=== PATIENT | female | born 1985 | race Two or more races ===

== ENCOUNTER 2016-11-03 11:06 | Emergency (ER) | payer OTHER, MEDICAID ==
[~2016-11-03 11:06] MED LIST: COLY4000S PO; MAGN1SOL2 PO
[2016-11-03 11:20] VITALS: BP 117/85; PULSE 78; RESP 20; TEMP 98
--- NOTE | 2016-11-03 11:53 | PD ---
HPI Chief Complaint: Complaint Time Seen by Provider: 11:49 Travel History International Travel<30 days: No Contact w/Intl Traveler<30days: No Traveled to known affect area: No History of Present Illness HPI 31-year-old female is complaining of frequency and burning with urination. She' s been sick for about 4 days with sore throat and cough. She's been congested. 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 She does get frequent urinary tract infections. She smokes cigarettes PFSH Past Medical History Diminished Hearing: No Gastrointestinal Disorders: Yes (BORN WITHOUT ANUS) Genitourinary: Yes (FREQ UTI, "SWOLLEN KIDNEYS" ) Immunizations Current: Yes ?: Not LMP: NOW : 1 Para: 1 Miscarriage: 0 : 0 Past Surgical History Abdominal Surgery: Yes (COLOSTOMY BAG AT AGE 1, states she was born without an anus) Section: Yes Other Surgery: Yes (anal surgery at ) Social History Alcohol Use: Yes (SOCIAL- mix drinks, wine, beer) Tobacco Use: Yes (/2 PPD) Substance Use: No Allergies-Medications (Allergen,Severity, Reaction): Coded Allergies: Amoxil (Verified Allergy, Mild, 11/03/16) pt states she ahs taken amoxicillin recently for uti and had no adverse or allergic reaction. states her mother told her rash as a child. Reported Meds & Prescriptions Reported Meds & Active Scripts Active No Active Prescriptions or Reported Medications Review of Systems General / Constitutional: No: Fever, Chills Eyes: No: Diploplia, Blurred Vision HENT: No: Headaches Cardiovascular: No: Chest Pain or Discomfort Respiratory: Positive: Cough, Wheezing Gastrointestinal: No: Vomiting, Diarrhea Genitourinary: Positive: Urgency, Frequency, Dysuria Musculoskeletal: No: Myalgias, Arthralgias Skin: No Rash, No Itching Neurologic: No: Weakness Psychiatric: No: Anxiety, Depression Physical Exam Narrative GENERAL: Well-developed female SKIN: Warm and dry. HEAD: Atraumatic. Normocephalic. EYES: Pupils equal and round. No scleral icterus. No injection or drainage. ENT: No nasal bleeding or discharge. Mucous membranes pink and moist. NECK: Trachea midline. No JVD. CARDIOVASCULAR: Regular rate and rhythm. No murmur appreciated. RESPIRATORY: No accessory muscle use. Clear to auscultation. There is an occasional wheeze Breath sounds equal bilaterally. GASTROINTESTINAL: Abdomen soft, non-tender, nondistended. Hepatic and splenic margins not palpable. MUSCULOSKELETAL: No obvious deformities. No clubbing. No cyanosis. No edema. NEUROLOGICAL: Awake and alert. No obvious cranial nerve deficits. Motor grossly within normal limits. Normal speech. PSYCHIATRIC: Appropriate mood and affect; insight and judgment normal. Data Data Last Documented VS Vital Signs Date Time Temp Pulse Resp B/P Pulse Ox O2 Delivery O2 Flow Rate FiO2 11/03/16 11:20 98.0 78 20 117/85 Orders Urinalysis - C+S If Indicated (11/03/16 11:49) Urine Culture (11/03/16 11:52) Labs Laboratory Tests Test 11/03/16 11:52 Urine Collection Type CLEAN CATCH Urine Color YELLOW Urine Turbidity SLIGHT Urine pH 7.0 Urine Specific [place] 1.012 Urine Protein NEG mg/dL Urine Glucose (UA) NEG mg/dL Urine Ketones NEG mg/dL Urine Occult Blood LARGE Urine Nitrite POS Urine Bilirubin NEG Urine Leukocyte Esterase SMALL Urine RBC 4-9 /hpf Urine WBC 6-8 /hpf Urine Squamous Epithelial 0-5 /hpf Cells Urine Bacteria MANY /hpf Microscopic Urinalysis Comment CULTURE INDICATED Urine Collection Time 11:52 [facility] Medical Decision Making Medical Screen Exam Complete: Yes Emergency Medical Condition: Yes Medical Record Reviewed: Yes Differential Diagnosis Differential includes UTI,, URI Narrative Course 6-8 white cells urine which is somewhat equivocal for UTI. She will be treated as she has recurrent infections Diagnosis Primary Impression: Urinary tract infection Qualified Code: N30.00 - Acute cystitis without hematuria Scripts Cephalexin (Keflex)500 Mg Gcf183 Mg PO Q6H #28 CAP Ref 0 Prov:Sukhdeep Beltran MD 11/03/16 Disposition: 01 DISCHARGE HOME Condition: Stable Sukhdeep Beltran MD Nov 03, 2016 11:53
[2016-11-03 12:12] LABS: BLOOD, URINE LARGE (NEG); GLUCOSE,URINE NEG (NEG); KETONE, URINE NEG (NEG)
[2016-11-03 12:30] LABS: METHOD OF COLLECTION CLEAN CATCH; NITRITE,URINE POS (NEG)
[2016-11-03 12:31] LABS: BACTERIA, URINE MANY /hpf; COMMENT (UR) CULTURE INDICATED; CULTURE IF INDICATED CULTURE INDICATED; SQUAMOUS EPITHELIAL CELL URINE 0-5 /hpf (0-5); URINE COLOR YELLOW (YELLW/STRAW)
[2016-11-03] MEDS ORDERED: CEPH-460 PO (12:40)
== END 2016-11-03 12:46 | disposition home or self-care (01) ==
LOC: PHED 11:06
DX: N30.00 Acute cystitis without hematuria (principal); B96.20 Unspecified Escherichia coli [E. coli] as the cause of diseases classified elsewhere; B95.2 Enterococcus as the cause of diseases classified elsewhere; R07.0 Pain in throat; R05 Cough; K59.00 Constipation, unspecified; F17.200 Nicotine dependence, unspecified, uncomplicated; Z87.440 Personal history of urinary (tract) infections; Z87.19 Personal history of other diseases of the digestive system; Z87.448 Personal history of other diseases of urinary system
CPT/HCPCS: 81001; 87077; 87086; 87186; 99283

== ENCOUNTER 2017-01-25 13:46 | Emergency (ER) | payer MEDICAID, OTHER ==
[~2017-01-25] VITALS: Ht 154.9 cm; Wt 67.0 kg
[~2017-01-25 13:46] MED LIST changes: +CEPH-460 PO; -COLY4000S PO; -MAGN1SOL2 PO
[2017-01-25 13:57] VITALS: BP 95/70; PULSE 78; RESP 16; TEMP 98.1; O2SAT 98
[2017-01-25] MEDS ORDERED: LIDOCAINE 1%/EPINEPHrine 1:100,000 SOLN 20 ML VIAL INFIL ONE (14:30)
[2017-01-25] MEDS ORDERED: BACT800T5 PO (14:38)
--- NOTE | 2017-01-25 14:38 | PD ---
HPI Chief Complaint: Skin Problem Time Seen by Provider: 14:29 Travel History International Travel<30 days: No Contact w/Intl Traveler<30days: No Traveled to known affect area: No History of Present Illness HPI 31-year-old female presents to the emergency room for evaluation of a painful red lesion to her belly button that started 2 days ago. Patient is in the location of the previous belly button piercing but patient has not had a piercing in 10 years. Patient states it is gotten larger since then. She tried to pop this morning and a small amount of pus and blood came out. Pain is worse with palpation. She denies fever, chills, nausea, and vomiting. Denies history of MRSA. PFSH Past Medical History Diminished Hearing: No Gastrointestinal Disorders: Yes (BORN WITHOUT ANUS) Genitourinary: Yes (FREQ UTI, "SWOLLEN KIDNEYS" ) Immunizations Current: Yes Tetanus Vaccination: < 5 Years Influenza Vaccination: No ?: Not LMP: 01/05/17 : 1 Para: 1 Miscarriage: 0 : 0 Past Surgical History Abdominal Surgery: Yes (COLOSTOMY BAG AT AGE 1, states she was born without an anus) Section: Yes Other Surgery: Yes (anal surgery at ) Social History Alcohol Use: Yes (SOCIAL- mix drinks, wine, beer) Tobacco Use: Yes (1/2 PPD) Substance Use: No Allergies-Medications (Allergen,Severity, Reaction): Coded Allergies: Amoxil (Verified Allergy, Mild, 11/03/16) pt states she ahs taken amoxicillin recently for uti and had no adverse or allergic reaction. states her mother told her rash as a child. Reported Meds & Prescriptions Reported Meds & Active Scripts Active No Active Prescriptions or Reported Medications Review of Systems Except as stated in HPI: all other systems reviewed are Neg Physical Exam Narrative GENERAL: Well-nourished, well-developed female in no acute distress. Afebrile. Ambulatory. SKIN: Focused skin assessment warm/dry. There is an indurated area in the superior bellybutton which measures about 2 cm in diameter. It is fluctuant with pointing and slight drainage. There is a zone of inflammation around it but no lymphangitis. HEAD: Normocephalic. EYES: No scleral icterus. No injection or drainage. NECK: Supple, trachea midline. No JVD or lymphadenopathy. CARDIOVASCULAR: Regular rate and rhythm without murmurs, gallops, or rubs. RESPIRATORY: Breath sounds equal bilaterally. No accessory muscle use. PSYCHIATRIC: No delusional thought processes. No hallucinations. Data Data Last Documented VS Vital Signs Date Time Temp Pulse Resp B/P Pulse Ox O2 Delivery O2 Flow Rate FiO2 01/25/17 13:57 98.1 78 16 95/70 98 Orders Lidocai-Epi 1%-1:100,000 Inj (Xylocaine- (01/25/17 14:30) [facility] Medical Decision Making Medical Screen Exam Complete: Yes Emergency Medical Condition: Yes Medical Record Reviewed: Yes Differential Diagnosis Abscess versus cellulitis versus folliculitis Narrative Course 31-year-old female presents to the emergency room for evaluation of abscess to her belly button that started 2 days ago. Physical exam reveals a small 2 cm area of induration without surrounding lymphangitis. No systemic signs of infection. Abscess was drained, see procedure for details. Patient discharged with Bactrim and told to follow up with a primary care physician or return to the emergency room for worsening symptoms. She understands and agrees to this plan. Diagnosis Primary Impression: Abscess Referrals: Primary Care Physician Patient Instructions: Abscess (ED), General Instructions Additional Instructions: Rest and drink plenty of fluids. Take Bactrim as directed, until gone. Follow up with a primary care physician. Return to emergency room for worsening symptoms, as discussed. Med/Other Pt SpecificInfo: Prescription(s) given Scripts No Active Prescriptions or Reported Meds Disposition: 01 DISCHARGE HOME Condition: Stable Paulina Ortiz January 25, 2017 14:38
== END 2017-01-25 15:06 | disposition home or self-care (01) ==
LOC: PHEFT 13:46
DX: L02.211 Cutaneous abscess of abdominal wall (principal); F17.200 Nicotine dependence, unspecified, uncomplicated; Z88.0 Allergy status to penicillin
CPT/HCPCS: 10060; 87070; 87205

== ENCOUNTER 2017-11-27 07:48 | Emergency (ER) | payer MEDICAID ==
[~2017-11-27] VITALS: Ht 157.5 cm; Wt 70.3 kg
[~2017-11-27 07:48] MED LIST changes: +BACT800T5 PO; -CEPH-460 PO
[2017-11-27 07:53] VITALS: BP 117/70; PULSE 83; RESP 16; TEMP 98.8; O2SAT 98
[2017-11-27] MEDS ORDERED: DOXY100C PO (08:57)
--- NOTE | 2017-11-27 08:59 | PD ---
HPI Chief Complaint: Skin Problem Time Seen by Provider: 08:51 Travel History International Travel<30 days: No Contact w/Intl Traveler<30days: No Traveled to known affect area: No History of Present Illness HPI Patient has come in with a rash found on her left anterior leg, and then also another small bump on her left forearm. Patient denies any visitations to [place] , [place], or trail walking, however she does have a dog that does wonder into the backyard. Patient states that as a child she was told she was allergic to amoxicillin, however she remembers that 5 years ago she had an illness and was prescribed amoxicillin and she did not develop the rash that allegedly she developed when she was a child Patient denies any past medical or surgical history 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) Genitourinary: Yes (FREQ UTI, "SWOLLEN KIDNEYS" ) Immunizations Current: Yes Tetanus Vaccination: Unknown ?: Not : 1 Para: 1 Miscarriage: 0 : 0 Past Surgical History Abdominal Surgery: Yes (COLOSTOMY BAG AT AGE 1, states she was born without an anus) Section: Yes Other Surgery: Yes (anal surgery at ) Social History Alcohol Use: Yes (SOCIAL- mix drinks, wine, beer) Tobacco Use: Yes (1/2 PPD) Substance Use: No Allergies-Medications (Allergen,Severity, Reaction): Coded Allergies: amoxicillin (Unverified Allergy, Mild, 11/27/17) pt states she ahs taken amoxicillin recently for uti and had no adverse or allergic reaction. states her mother told her rash as a child. Reported Meds & Prescriptions Reported Meds & Active Scripts Active No Active Prescriptions or Reported Medications Review of Systems Except as stated in HPI: all other systems reviewed are Neg General / Constitutional: No: Fever Eyes: No: Visual changes HENT: No: Headaches Cardiovascular: No: Chest Pain or Discomfort Respiratory: No: Shortness of Breath Gastrointestinal: No: Abdominal Pain Genitourinary: No: Dysuria Musculoskeletal: No: Pain Skin: Positive Rash Neurologic: No: Weakness Psychiatric: No: Depression Endocrine: No: Polydipsia Hematologic/Lymphatic: No: Easy Bruising Physical Exam Narrative GENERAL: SKIN: Warm and dry. Left anterior mid bhatt area shows a ringlike lesion with raised borders and central clearing. Consistent with a ringlike lesion of Lyme' s disease HEAD: Atraumatic. Normocephalic. EYES: Pupils equal and round. No scleral icterus. No injection or drainage. ENT: No nasal bleeding or discharge. Mucous membranes pink and moist. NECK: Trachea midline. No JVD. No stridor CARDIOVASCULAR: Regular rate and rhythm. No murmur RESPIRATORY: No accessory muscle use. Clear to auscultation. Breath sounds equal bilaterally. No wheezing GASTROINTESTINAL: Abdomen soft, non-tender, nondistended. MUSCULOSKELETAL: Extremities without clubbing, cyanosis, or edema. No obvious deformities. NEUROLOGICAL: Awake and alert. No obvious cranial nerve deficits. Motor grossly within normal limits. Five out of 5 muscle strength in the arms and legs. Normal speech. PSYCHIATRIC: Appropriate mood and affect; insight and judgment normal. Data Data Last Documented VS Vital Signs Date Time Temp Pulse Resp B/P (MAP) Pulse Ox O2 Delivery O2 Flow Rate FiO2 11/27/17 07:53 98.8 83 16 117/70 (86) 98 MDM Medical Decision Making Medical Screen Exam Complete: Yes Emergency Medical Condition: Yes Medical Record Reviewed: Yes Differential Diagnosis Cellulitis versus abscess versus lymphangitis versus erythema migrans Narrative Course Clinically the rash is classic of erythema migrans on examination without any associated lymphadenopathy, streaking, murmurs, or any additional findings. Patient is nontoxic and stable for outpatient treatment Diagnosis Primary Impression: eryhema migrans Patient Instructions: General Instructions, Lyme Disease (GEN) Scripts Doxycycline Hyclate (Doxycycline Hyclate) 100 Mg Cap 100 MG PO BID for Infection, #28 CAP 0 Refills Prov: Greg Evans MD 11/27/17 Disposition: 01 DISCHARGE HOME Condition: Stable Greg Evans MD Nov 27, 2017 08:59
== END 2017-11-27 09:06 | disposition home or self-care (01) ==
LOC: PHEFT 07:48
DX: A26.0 Cutaneous erysipeloid (principal); F17.200 Nicotine dependence, unspecified, uncomplicated; Z87.19 Personal history of other diseases of the digestive system; Z87.448 Personal history of other diseases of urinary system
CPT/HCPCS: 99283

== ENCOUNTER 2017-12-21 13:34 | Emergency (ER) | payer MEDICAID ==
[~2017-12-21 13:34] MED LIST changes: -BACT800T5 PO; +DOXY100C PO
[2017-12-21] MEDS ORDERED: IOHEXOL 350 MG/ML 10 ML VIAL (for RAD DIAG) IVCONTRAST ONE (13:35)
[2017-12-21 13:42] VITALS: BP 127/81; PULSE 68; RESP 14; TEMP 97.7; O2SAT 99
[2017-12-21] MEDS ORDERED: SODIUM CHLORIDE 0.9% FLUSH 10 ML FLUSH IVF PRN (17:00)
[2017-12-21] MEDS ORDERED: SODIUM CHLORID 0.9% 500 ML INJ 500 ML IV ONE (17:00)
--- NOTE | 2017-12-21 17:02 | PD ---
HPI Chief Complaint: Chest Pain Time Seen by Provider: 16:49 Travel History International Travel<30 days: No Contact w/Intl Traveler<30days: No History of Present Illness HPI 32-year-old female presents emergency department with 2 day history of "chest pressure" that started yesterday morning upon awakening. Patient denies specific pain, but feels pressure on the anterior chest and some shortness of breath with exertion. She denies recent illness although she was reportedly diagnosed with Lyme disease about a month ago and given doxycycline for 2 weeks. She states she finished that medication 2-1/2 weeks ago. She states she has had increased reflux lately for which she took Tums yesterday. She states her symptoms are somewhat improved today but still present. She also complains of left arm tingling off and on which she associated with the chest pressure. Patient works as a hairdresser and denies recent increased stressors. She denies . Patient denies wheezing, fever, cough, productive cough, or upper respiratory symptoms. Patient denies abdominal pain , urinary symptoms, or vaginal symptoms. 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) Genitourinary: Yes (FREQ UTI, "SWOLLEN KIDNEYS" ) Immunizations Current: Yes : 1 Para: 1 Miscarriage: 0 : 0 Past Surgical History Abdominal Surgery: Yes (COLOSTOMY BAG AT AGE 1, states she was born without an anus) Section: Yes Other Surgery: Yes (anal surgery at ) Social History Alcohol Use: Yes (SOCIAL- mix drinks, wine, beer) Tobacco Use: Yes (1/2 PPD) Substance Use: No Allergies-Medications (Allergen,Severity, Reaction): Coded Allergies: No Known Allergies (Unverified , 12/21/17) Reported Meds & Prescriptions Reported Meds & Active Scripts Active Doxycycline Hyclate 100 Mg Cap 100 Mg PO BID Review of Systems Except as stated in HPI: all other systems reviewed are Neg General / Constitutional: No: Fever Eyes: No: Visual changes HENT: No: Headaches Cardiovascular: Positive: Chest Pain or Discomfort (See history of present illness.), Palpitations, Dyspnea on exertion, No: Irregular Rhythm, Tachycardia , Diaphoresis, Edema Respiratory: Positive: Shortness of Breath, No: Cough, Wheezing, Sneezing Gastrointestinal: Positive: Nausea, Other (Increased reflux.), No: Vomiting, Diarrhea, Abdominal Pain Genitourinary: No: Urgency, Frequency, Dysuria, Pelvic Pain, Flank Pain, Discharge Musculoskeletal: No: Pain Skin: No Rash Neurologic: Positive: Paresthesia (See history of present illness per), No: Weakness Psychiatric: No: Depression Endocrine: No: Polydipsia Hematologic/Lymphatic: No: Easy Bruising Physical Exam Narrative GENERAL: Patient appears anxious but otherwise in no acute distress. She is ambulatory to the room without difficulty. SKIN: Warm and dry. Normal color. Normal turgor. Patient appears to have a small area of ringworm to the anterior left bhatt. HEAD: Atraumatic. Normocephalic. EYES: Pupils equal and round. No scleral icterus. No injection or drainage. ENT: No nasal bleeding or discharge. Mucous membranes pink and moist. TMs are clear bilaterally. No sinus tenderness. Posterior pharynx is clear. Airways patent. NECK: Trachea midline. Supple and nontender CARDIOVASCULAR: Regular rate and rhythm. RESPIRATORY: No accessory muscle use. Clear to auscultation. Breath sounds equal bilaterally. GASTROINTESTINAL: Abdomen soft, non-tender, nondistended. Hepatic and splenic margins not palpable. MUSCULOSKELETAL: Extremities without clubbing, cyanosis, or edema. No obvious deformities. NEUROLOGICAL: Awake and alert. No obvious cranial nerve deficits. Motor grossly within normal limits. Five out of 5 muscle strength in the arms and legs. Normal speech. PSYCHIATRIC: Appropriate mood and affect; insight and judgment normal. Data Data Last Documented VS Vital Signs Date Time Temp Pulse Resp B/P (MAP) Pulse Ox O2 Delivery O2 Flow Rate FiO2 12/21/17 18:23 69 18 119/89 (99) 98 Room Air 12/21/17 13:42 97.7 Orders Orders Electrocardiogram (12/21/17 ) Electrocardiogram (12/21/17 16:57) Ckmb (Isoenzyme) Profile (12/21/17 16:57) Complete Blood Count With Diff (12/21/17 16:57) Comprehensive Metabolic Panel (12/21/17 16:57) D-Dimer (12/21/17 16:57) Magnesium (Mg) (12/21/17 16:57) Prothrombin Time / Inr (Pt) (12/21/17 16:57) Act Partial Throm Time (Ptt) (12/21/17 16:57) Troponin I (4/10/18 16:57) Ecg Monitoring (12/21/17 16:57) Bilateral Bp Monitoring (12/21/17 16:57) Iv Access Insert/Monitor (12/21/17 16:57) Oximetry (12/21/17 16:57) Oxygen Administration (12/21/17 16:57) Sodium Chloride 0.9% Flush (Ns Flush) (12/21/17 17:00) Sodium Chlorid 0.9% 500 Ml Inj (Ns 500 M (12/21/17 17:00) Chest, Pa & Lat (12/21/17 16:57) Ed Urine Pregnancytest Poc (12/21/17 17:02) CKMB (12/21/17 17:25) CKMB% (12/21/17 17:25) Ct Pulmonary Angiogram (12/21/17 18:35) Labs Laboratory Tests Test 12/21/17 17:25 White Blood Count 6.1 TH/MM3 Red Blood Count 5.05 MIL/MM3 Hemoglobin 14.5 GM/DL Hematocrit 42.8 % Mean Corpuscular Volume 84.7 FL Mean Corpuscular Hemoglobin 28.7 PG Mean Corpuscular Hemoglobin Concent 33.8 % Red Cell Distribution Width 15.5 % Platelet Count 204 TH/MM3 Mean Platelet Volume 8.3 FL Neutrophils (%) (Auto) 62.1 % Lymphocytes (%) (Auto) 29.7 % Monocytes (%) (Auto) 5.8 % Eosinophils (%) (Auto) 1.4 % Basophils (%) (Auto) 1.0 % Neutrophils # (Auto) 3.8 TH/MM3 Lymphocytes # (Auto) 1.8 TH/MM3 Monocytes # (Auto) 0.3 TH/MM3 Eosinophils # (Auto) 0.1 TH/MM3 Basophils # (Auto) 0.1 TH/MM3 CBC Comment DIFF FINAL Differential Comment Prothrombin Time 10.1 SEC Prothromb Time International Ratio 1.0 RATIO Activated Partial Thromboplast Time 26.4 SEC D-Dimer Quantitative (PE/DVT) 0.70 MG/L FEU Blood Urea Nitrogen 12 MG/DL Creatinine 0.72 MG/DL Random Glucose 126 MG/DL Total Protein 7.7 GM/DL Albumin 3.8 GM/DL Calcium Level 8.6 MG/DL Magnesium Level 2.0 MG/DL Alkaline Phosphatase 82 U/L Aspartate Amino Transf (AST/SGOT) 26 U/L Alanine Aminotransferase (ALT/SGPT) 36 U/L Total Bilirubin 0.3 MG/DL Sodium Level 136 MEQ/L Potassium Level 3.6 MEQ/L Chloride Level 107 MEQ/L Carbon Dioxide Level 20.7 MEQ/L Anion Gap 8 MEQ/L Estimat Glomerular Filtration Rate 94 ML/MIN Total Creatine Kinase 139 U/L Creatine Kinase MB 0.9 NG/ML Troponin I LESS THAN 0.02 NG/ML MDM Medical Decision Making Medical Screen Exam Complete: Yes Emergency Medical Condition: Yes Medical Record Reviewed: Yes Differential Diagnosis Shortness of breath. Chest pressure. Cardiac syndrome. PE. Anxiety. Reflux. Narrative Course Patient appears medically stable at time of exam. EKG shows normal sinus rhythm at [address] changes. Urine is ordered. Chest x-ray PA and lateral ordered. Labs ordered including CBC, CMP, magnesium, troponin, d-dimer and coagulation studies. Patient is given a 500 mL of normal saline bolus. Chest x-ray is unremarkable per radiologist. CBC is unremarkable. Troponin is less than 0.02. Chemistries are unremarkable except for carbon dioxide of 20.7. Random glucose is 126, otherwise no significant findings. Coagulation studies show PT of 10.1, INR 1.0, APTT is 26.4. D-dimer is elevated at 0.70. CTA of the chest is ordered. 1900 hrs[address] CT is pending, and care of the patient will be turned over to [facility] nurse practitioner for final disposition. Condition: Stable Ilya Church Dec 21, 2017 17:02
[2017-12-21 17:25] VITALS: O2SAT 99
--- NOTE | 2017-12-21 17:45 | RADRPT ---
EXAM DATE/TIME: 12/21/2017 17:10 [facility] COMPARISON: No previous studies available for comparison. INDICATIONS : Chest pain. MEDICAL HISTORY : None. SURGICAL HISTORY : None. ENCOUNTER: Initial ACUITY: 2 days PAIN SCORE: 4/10 LOCATION: middle chest. FINDINGS: PA and lateral views of the chest demonstrate the lungs to be symmetrically aerated without evidence of mass, infiltrate or effusion. The cardiomediastinal contours are unremarkable. Osseous structure s are intact. CONCLUSION: No acute disease. Bk Garcia MD on December 21, 2017 at 17:42 Board Certified Radiologist. This report was verified electronically.
[2017-12-21 17:59] LABS: AUTOMATED NEUTROPHIL # 3.8 TH/MM3 (1.8-7.7); BASOPHIL # 0.1 TH/MM3 (0-0.2); EOSINOPHIL # 0.1 TH/MM3 (0-0.4); EOSINOPHIL % 1.4 % (0.0-4.0); HEMATOCRIT 42.8 % (35.0-46.0); HEMOGLOBIN 14.5 GM/DL (11.6-15.3); LYMPH % 29.7 % (9.0-44.0); LYMPHOCYTE # 1.8 TH/MM3 (1.0-4.8); MEAN CELL VOLUME 84.7 FL (80.0-100.0); MEAN CORPUSCULAR HEMOGLOBIN 28.7 PG (27.0-34.0); MEAN CORPUSCULAR HGB CONC 33.8 % (32.0-36.0); MEAN PLATELET VOLUME 8.3 FL (7.0-11.0); MONO % 5.8 % (0.0-8.0); MONOCYTE # 0.3 TH/MM3 (0-0.9); NEUT % 62.1 % (16.0-70.0); PLATELET COUNT 204 TH/MM3 (150-450); RED BLOOD COUNT 5.05 MIL/MM3 (4.00-5.30); RED CELL DISTRIBUTION WIDTH 15.5 % (11.6-17.2); WHITE BLOOD COUNT 6.1 TH/MM3 (4.0-11.0)
[2017-12-21 18:23] VITALS: BP 119/89; PULSE 69; RESP 18; O2SAT 98
[2017-12-21 18:25] LABS: ALKALINE PHOSPHATASE 82 U/L (45-117); ALT (GPT) 36 U/L (10-53); TOTAL BILIRUBIN ADULT 0.3 MG/DL (0.2-1.0); TOTAL PROTEIN 7.7 GM/DL (6.4-8.2); TROPONIN I LESS THAN 0.02 NG/ML (0.02-0.05)
[2017-12-21 18:28] LABS: PROTHROMBIN TIME - PATIENT 10.1 SEC (9.8-11.6)
[2017-12-21 18:34] LABS: D-DIMER 0.7 MG/L FEU (0.00-0.50)
[2017-12-21 18:39] LABS: ALBUMIN 3.8 GM/DL (3.4-5.0); AST (GOT) 26 U/L (15-37); BICARBONATE 20.7 MEQ/L (21.0-32.0); BLOOD UREA NITROGEN 12 MG/DL (7-18); CALCIUM 8.6 MG/DL (8.5-10.1); CHLORIDE 107 MEQ/L (98-107); CREATININE 0.72 MG/DL (0.50-1.00); GLOMERULAR FILTRATION RATE 94 ML/MIN (>89); GLUCOSE,RANDOM 126 MG/DL (74-106); SODIUM (NA) 136 MEQ/L (136-145)
--- NOTE | 2017-12-21 20:34 | RADRPT ---
EXAM DATE/TIME: 12/21/2017 20:20 [facility] COMPARISON: CHEST PA & LAT, December 21, 2017, 17:10. INDICATIONS : Chest pressure , short of breath. IV CONTRAST: 75 cc Omnipaque 350 (iohexol) IV RADIATION DOSE: 8.62 CTDIvol (mGy) MEDICAL HISTORY : None SURGICAL HISTORY : None. ENCOUNTER: Initial ACUITY: 1 day PAIN SCALE: 5/10 LOCATION: chest TECHNIQUE: Volumetric scanning of the chest was performed using a pulmonary embolism protocol MIP images were re constructed. Using automated exposure control and adjustment of the mA and/or kV according to patien t size, radiation dose was kept as low as reasonably achievable to obtain optimal diagnostic quality images. DICOM format image data is available electronically for review and comparison. Follow-up recommendations for detected pulmonary nodules are based at a minimum on nodule size and pa tient risk factors according to Fleischner Society Guidelines. FINDINGS: PULMONARY ARTERIES: No filling defects are seen in the pulmonary arteries through the segmental level. LUNGS: There is no consolidation or pneumothorax . No concerning pulmonary nodule is visualized. PLEURAE: There is no pleural thickening or pleural effusion. MEDIASTINUM: There is good visualization of the great vessels of the middle mediastinum. No evidence of mediastin al or hilar adenopathy/mass. MUSCULOSKELETAL: Within normal limits for patient age. MISCELLANEOUS: The visualized upper abdominal organs demonstrate no acute abnormality. CONCLUSION: Negative exam with no evidence of pulmonary emboli. Yg Mulligan MD on December 21, 2017 at 20:31 Board Certified Radiologist. This report was verified electronically.
[2017-12-21] MEDS ORDERED: NAPR500T2 PO (20:40)
--- NOTE | 2017-12-21 20:40 | PD ---
Physical Exam Time Seen by Provider: 20:39 Narrative Please refer to previous providers documentation for details surrounding the patient's current visit. Data Data Last Documented VS Vital Signs Date Time Temp Pulse Resp B/P (MAP) Pulse Ox O2 Delivery O2 Flow Rate FiO2 12/21/17 21:06 12/21/17 18:23 69 18 98 Room Air 12/21/17 13:42 97.7 Orders Orders Electrocardiogram (12/21/17 ) Electrocardiogram (12/21/17 16:57) Ckmb (Isoenzyme) Profile (12/21/17 16:57) Complete Blood Count With Diff (12/21/17 16:57) Comprehensive Metabolic Panel (12/21/17 16:57) D-Dimer (12/21/17 16:57) Magnesium (Mg) (12/21/17 16:57) Prothrombin Time / Inr (Pt) (12/21/17 16:57) Act Partial Throm Time (Ptt) (12/21/17 16:57) Troponin I (12/21/17 16:57) Ecg Monitoring (12/21/17 16:57) Bilateral Bp Monitoring (12/21/17 16:57) Iv Access Insert/Monitor (12/21/17 16:57) Oximetry (12/21/17 16:57) Oxygen Administration (12/21/17 16:57) Sodium Chloride 0.9% Flush (Ns Flush) (12/21/17 17:00) Sodium Chlorid 0.9% 500 Ml Inj (Ns 500 M (12/21/17 17:00) Chest, Pa & Lat (12/21/17 16:57) Ed Urine Pregnancytest Poc (12/21/17 17:02) CKMB (12/21/17 17:25) CKMB% (12/21/17 17:25) Ct Pulmonary Angiogram (12/21/17 18:35) Iohexol 350 Inj (Omnipaque 350 Inj) (12/21/17 13:35) Ed Discharge Order (12/21/17 20:38) Labs Laboratory Tests Test 12/21/17 17:25 White Blood Count 6.1 TH/MM3 Red Blood Count 5.05 MIL/MM3 Hemoglobin 14.5 GM/DL Hematocrit 42.8 % Mean Corpuscular Volume 84.7 FL Mean Corpuscular Hemoglobin 28.7 PG Mean Corpuscular Hemoglobin Concent 33.8 % Red Cell Distribution Width 15.5 % Platelet Count 204 TH/MM3 Mean Platelet Volume 8.3 FL Neutrophils (%) (Auto) 62.1 % Lymphocytes (%) (Auto) 29.7 % Monocytes (%) (Auto) 5.8 % Eosinophils (%) (Auto) 1.4 % Basophils (%) (Auto) 1.0 % Neutrophils # (Auto) 3.8 TH/MM3 Lymphocytes # (Auto) 1.8 TH/MM3 Monocytes # (Auto) 0.3 TH/MM3 Eosinophils # (Auto) 0.1 TH/MM3 Basophils # (Auto) 0.1 TH/MM3 CBC Comment DIFF FINAL Differential Comment Prothrombin Time 10.1 SEC Prothromb Time International Ratio 1.0 RATIO Activated Partial Thromboplast Time 26.4 SEC D-Dimer Quantitative (PE/DVT) 0.70 MG/L FEU Blood Urea Nitrogen 12 MG/DL Creatinine 0.72 MG/DL Random Glucose 126 MG/DL Total Protein 7.7 GM/DL Albumin 3.8 GM/DL Calcium Level 8.6 MG/DL Magnesium Level 2.0 MG/DL Alkaline Phosphatase 82 U/L Aspartate Amino Transf (AST/SGOT) 26 U/L Alanine Aminotransferase (ALT/SGPT) 36 U/L Total Bilirubin 0.3 MG/DL Sodium Level 136 MEQ/L Potassium Level 3.6 MEQ/L Chloride Level 107 MEQ/L Carbon Dioxide Level 20.7 MEQ/L Anion Gap 8 MEQ/L Estimat Glomerular Filtration Rate 94 ML/MIN Total Creatine Kinase 139 U/L Creatine Kinase MB 0.9 NG/ML Troponin I LESS THAN 0.02 NG/ML [facility] Medical Record Reviewed: Yes Supervised Visit with CHARLES: No Narrative Course Patient is signed out to me with CT pulmonary angiogram pending. This is negative for PE. I have reviewed findings with patient and her family at bedside. I have encouraged her to stop smoking tobacco cigarettes. I encouraged her to follow-up with primary care provider. She agrees to return immediately with any acute worsening symptoms. Diagnosis Primary Impression: Chest wall pain Referrals: Primary Care Physician Patient Instructions: Chest Wall Pain (ED), General Instructions Departure Forms: Tests/Procedures, Work Release Enter return to work date: Dec 23, 2017 Additional Instruction: Follow up with a primary care provider Return to ED with acute worsening of symptoms Med/Other Pt SpecificInfo: Prescription(s) given Scripts Naproxen (Naproxen) 500 Mg Tab 500 MG PO BID Y for PAIN SCALE 1 TO 10, #30 TAB 0 Refills Prov: Sarai Goodman 12/21/17 Disposition: 01 DISCHARGE HOME Condition: Stable Sarai Goodman Dec 21, 2017 20:40
--- NOTE | 2017-12-22 21:36 | EKG ---
Date Performed: 12/21/2017 Time Performed: 14:00:34 PTAGE: 32 years EKG: Sinus rhythm NORMAL ECG PREVIOUS TRACING : 04/07/2010 17.31 Since the previous tracing, no significant change noted DOCTOR: Daniel Payne Interpretating Date/Time 12/22/2017 21:35:05
== END 2017-12-21 21:09 | disposition home or self-care (01) ==
LOC: NEPD 13:34
DX: R07.89 Other chest pain (principal); R06.02 Shortness of breath; R11.0 Nausea; K21.9 Gastro-esophageal reflux disease without esophagitis; R20.2 Paresthesia of skin; F17.210 Nicotine dependence, cigarettes, uncomplicated
CPT/HCPCS: 71046; 71275; 80053; 82550; 82552; 83735; 84484; 84703; 85025; 85379; 85610; 85730; 93005; 96360; 96361; 99285; J7040; Q9967

== ENCOUNTER 2018-02-08 15:32 | Emergency (ER) | payer SELFPAY ==
[~2018-02-08] VITALS: Ht 157.5 cm; Wt 73.1 kg
[~2018-02-08 15:32] MED LIST changes: +NAPR500T2 PO
[2018-02-08 15:43] VITALS: BP 101/70; PULSE 86; RESP 18; TEMP 98.6; O2SAT 97
[2018-02-08] MEDS ORDERED: OSEL75 PO (17:50)
--- NOTE | 2018-02-08 17:54 | PD ---
HPI Chief Complaint: Cold / Flu Symptoms Time Seen by Provider: 17:35 Travel History International Travel<30 days: No Contact w/Intl Traveler<30days: No Traveled to known affect area: No History of Present Illness HPI 33-year-old female presents emergency department complaining of migraine, sore throat, body aches, cough and chills that been persistent for 2-3 days. Says that she is also had nausea for 1 day. Patient has not checked her temperature however, she says she has been feeling warm. She denies vomiting or diarrhea. Denies shortness of breath or chest pain. Her cough is nonproductive. Says she was recently diagnosed with Lyme's disease but does not believe that is contributing to her symptoms today. She says that she has had migraines previously when she has been sick. 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 ANUS) Section: Yes (X1) Other Surgery: Yes (anal surgery at ) Family History Family Hypercholesterolemia: Yes Social History Alcohol Use: Yes (SOCIAL- mix drinks, wine, beer) Tobacco Use: Yes (1 PPD) Substance Use: No Allergies-Medications (Allergen,Severity, Reaction): Coded Allergies: No Known Allergies (Unverified , 02/08/18) Reported Meds & Prescriptions Reported Meds & Active Scripts Active No Active Prescriptions or Reported Medications Review of Systems Except as stated in HPI: all other systems reviewed are Neg Physical Exam Narrative GENERAL: Well developed, nourished in mild distress, nasal sounding SKIN: Focused skin assessment warm/dry. HEAD: Atraumatic. Normocephalic. EYES: Pupils equal and round. No scleral icterus. No injection or drainage. ENT: No nasal bleeding or discharge. Mucous membranes pink and moist. Mild posterior pharyngeal injection without tonsillar hypertrophy or exudate. NECK: Trachea midline. No JVD. No lymphadenopathy CARDIOVASCULAR: Regular rate and rhythm. No murmur appreciated. RESPIRATORY: No accessory muscle use. Clear to auscultation. Breath sounds equal bilaterally. GASTROINTESTINAL: Abdomen soft, non-tender, nondistended. No CVA tenderness MUSCULOSKELETAL: No obvious deformities. No clubbing. No cyanosis. No edema. NEUROLOGICAL: Awake and alert. No obvious cranial nerve deficits. Motor grossly within normal limits. Normal speech. PSYCHIATRIC: Appropriate mood and affect; insight and judgment normal. Data Data Last Documented VS Vital Signs Date Time Temp Pulse Resp B/P (MAP) Pulse Ox O2 Delivery O2 Flow Rate FiO2 02/08/18 15:43 98.6 86 18 101/70 (80) 97 MDM Medical Decision Making Medical Screen Exam Complete: Yes Emergency Medical Condition: Yes Differential Diagnosis influenza, URI, pneumonia, bronchitis, pneumonitis, bronchospasm Narrative Course 33-year-old female presents emergency department complaining of migraine, sore throat, body aches, cough and chills that been persistent for 2-3 days. Says that she is also had nausea for 1 day. Patient has not checked her temperature however, she says she has been feeling warm. She denies vomiting or diarrhea. Denies shortness of breath or chest pain. Her cough is nonproductive. Says she was recently diagnosed with Lyme's disease but does not believe that is contributing to her symptoms today. She says that she has had migraines previously when she has been sick. Vital signs are stable. I offered testing of this patient for the flu. Understandably the patient has had symptoms for 2-3 days. Patient is just outside the window for Tamiflu however, still the patient would benefit. She is advised to have adequate fluid intake and proper nutrition to reduce her symptoms. Patient states she would like to be treated and would not like to wait for testing. She should follow-up with her primary care physician. Diagnosis Primary Impression: Viral syndrome Referrals: Primary Care Physician Departure Forms: Tests/Procedures, Work Release Enter return to work date: Feb 11, 2018 Additional Instructions: You may use a drop of honey and lemon in a cup of warm water to soothe your cough. (If you are greater than 1 year old ) Ensure good hydration and a nutritious diet. Note that viral infection symptoms may last for several weeks if you have a viral illness. Follow up with your primary physician within 2-3 days. Return to the ED for worsening or persistent symptoms. Scripts No Active Prescriptions or Reported Meds Disposition: 01 DISCHARGE HOME Condition: Stable Isela Carbone February 08, 2018 17:54
== END 2018-02-08 18:04 | disposition home or self-care (01) ==
LOC: PHED 15:32 → PHEFT 18:04
DX: B34.9 Viral infection, unspecified (principal); F17.200 Nicotine dependence, unspecified, uncomplicated
CPT/HCPCS: 84703; 99283